=== PATIENT | female | born 1995 | race Caucasian/White ===

== ENCOUNTER 2021-09-04 14:09 | Inpatient (IN) | payer BC, MEDICAID ==
--- NOTE | 2021-09-04 16:07 | US ---
INDICATION: Third trimester with chronic hypertension. TECHNIQUE: Ultrasound OB pelvis transabdominal. Real-time salgado-scale imaging of the fetus was performed without stress testing. COMPARISON: 08/11/2021. FINDINGS: Sonographic imaging demonstrates a single living intrauterine gestation. Fetus demonstrates a regular cardiac rate of 132 beats per minute. Fetus has a cephalic orientation. Placenta is posterior. Biometric measurements: Biparietal diameter: 36 weeks 5 days. Head circumference: 37 weeks 2 days. Abdominal circumference: 36 weeks 3 days. Femur length: 36 weeks 1 day. Estimated weight: 2942 grams, 40th percentile. Estimated ultrasound age by today`s measurements is 36 weeks 4 days. Amniotic fluid volume appears within normal limits with a single deepest pocket of 3.3 cm. breathing movements, motion, and tone were all observed. IMPRESSION: Single viable intrauterine with a biophysical profile 05/14. Adequate interval growth has been demonstrated. Dictated by Pratik Bowen MD @ 09/04/2021 4:05:44 PM (Electronically Signed)
[2021-09-04 16:22] LABS: BLOOD UREA NITROGEN,BUN 15 mg/dL (7.0-18.0); CARBON DIOXIDE,CO2 21.2 mmol/L (21.0-32.0); CHLORIDE,CL 102 mmol/L (98-107); GLUCOSE RANDOM 76 mg/dL (74-106); POTASSIUM,K 4.4 mmol/L (3.5-5.1); SODIUM,NA 136 mmol/L (136-145)
[2021-09-04] MEDS ORDERED: Carboprost Tromethamine 250 MCG/1 ML Amp IM PRN (17:02)
[2021-09-04] MEDS ORDERED: Sodium Chloride 0.9% 20 ML SDV IV PRN (17:02)
[2021-09-04] MEDS ORDERED: Methylergonovine 0.2 MG/1 ML Amp IM PRN (17:02)
[2021-09-04] MEDS ORDERED: Sodium Chloride 0.9% 2.5 ML Syringe FLUSH PRN (17:02)
[2021-09-04] MEDS ORDERED: Nalbuphine 10 MG/1 ML Vial IVPUSH PRN (17:02)
[2021-09-04] MEDS ORDERED: Tranexamic Acid 1,000 MG in Sodium Chloride 0.9% 100 ML IV PRN (17:02)
[2021-09-04] MEDS ORDERED: Sodium Chloride 0.9% 10 ML Syringe FLUSH PRN (17:02)
[2021-09-04] MEDS ORDERED: Butorphanol 1 MG/ML SDV IVPUSH PRN (17:02)
[2021-09-04] MEDS ORDERED: Lidocaine 1% 50 ML MDV INJECT PRN (17:02)
[2021-09-04] MEDS ORDERED: Misoprostol 200 MCG Tab PO PRN (17:02)
[2021-09-04] MEDS ORDERED: Water For Irrigation,Sterile 1,000 ML Container IRR PRN (17:02)
[2021-09-04] MEDS ORDERED: Terbutaline 1 MG/ML SDV SUBCUT PRN (17:10)
[2021-09-04] MEDS ORDERED: Oxytocin/0.9 % Sodium Chloride 30 UNIT/500 ML BAG IV SCH ×2 (17:15)
[2021-09-04] MEDS ORDERED: Ampicillin 2 GM in Sodium Chloride 0.9% 100 ML IV ONE (17:30)
[2021-09-04] MEDS: Lactated Ringers 1,000 ML IV SCH (17:55)
[2021-09-04] MEDS ORDERED: Sodium Chloride 0.9% 100 ML ONE (18:08)
[2021-09-04] MEDS: Misoprostol 25 MCG (1/4 of 100 MCG) Tab PO PRN ×2 (18:20→22:34)
[2021-09-04] MEDS: Misoprostol 25 MCG (1/4 of 100 MCG) Tab VAG PRN ×2 (18:20→22:34)
[2021-09-04] MEDS: Labetalol 100 MG Tab PO SCH (21:03)
[2021-09-04] MEDS: NIFEdipine 30 MG Tab.ER PO SCH (21:03)
[2021-09-04] MEDS: Ampicillin 1 GM in Sodium Chloride 0.9% 50 ML IV SCH (21:05)
--- NOTE | 2021-09-04 22:57 | PCM.PREANE ---
Preanesthetic Assessment - Procedure Proposed Procedure: Potential Epidural, Spinal, or GETA - Anesthesia/Transfusion/Family Hx Anesthesia History: Prior Anesthesia Without Reaction Family History of Anesthesia Reaction: No Transfusion History: No Prior Transfusion(s) - Review of Systems General: No Symptoms Pulmonary: No Symptoms Cardiovascular: Other (HTN prior to ) Gastrointestinal: No Symptoms Neurological: No Symptoms Other: Reports: None - Physical Assessment NPO Status Date: 09/04/21 NPO Status Time: 22:00 Vital Signs: Last Vital Signs Temp Pulse 94 09/04/21 21:03 Resp BP 139/68 09/04/21 21:03 Pulse Ox Height: 1.6 m Weight: 122.47 kg ASA Class: 3 Mental Status: Alert & Oriented x3 Airway Class: Mallampati = 2 Dentition: Reports: Normal Dentition Thyro-Mental Finger Breadths: 3 Mouth Opening Finger Breadths: 3 ROM/Head Extension: Full Lungs: Clear to Auscultation, Normal Respiratory Effort Cardiovascular: Regular Rate, Regular Rhythm - Lab Values: Laboratory Last Values WBC 9.21 K/uL (4.0-11.0) 09/04/21 15:40 RBC 4.07 M/uL (4.30-5.90) L 09/04/21 15:40 Hgb 12.3 g/dL (12.0-16.0) 09/04/21 15:40 Hct 36.5 % (36.0-46.0) 09/04/21 15:40 MCV 89.7 fL (80.0-98.0) 09/04/21 15:40 MCH 30.2 pg (27.0-32.0) 09/04/21 15:40 MCHC 33.7 g/dL (31.0-37.0) 09/04/21 15:40 RDW Std Deviation 42.1 fl (28.0-62.0) 09/04/21 15:40 RDW Coeff of Hafsa 13 % (11.0-15.0) 09/04/21 15:40 Plt Count 370 K/uL (150-400) 09/04/21 15:40 MPV 9.90 fL (7.40-12.00) 09/04/21 15:40 Neut % (Auto) 71.0 % (48.0-80.0) 09/04/21 15:40 Lymph % (Auto) 21.5 % (16.0-40.0) 09/04/21 15:40 [place] % (Auto) 6.7 % (0.0-15.0) 09/04/21 15:40 Eos % (Auto) 0.7 % (0.0-7.0) 09/04/21 15:40 Baso % (Auto) 0.1 % (0.0-1.5) 09/04/21 15:40 Neut # (Auto) 6.5 K/uL (1.4-5.7) H 09/04/21 15:40 Lymph # (Auto) 2.0 K/uL (0.6-2.4) 09/04/21 15:40 [place] # (Auto) 0.6 K/uL (0.0-0.8) 09/04/21 15:40 Eos # (Auto) 0.1 K/uL (0.0-0.7) 09/04/21 15:40 Baso # (Auto) 0.0 K/uL (0.0-0.1) 09/04/21 15:40 Nucleated RBC % 0.0 /100WBC 09/04/21 15:40 Nucleated RBCs # 0 K/uL 09/04/21 15:40 Sodium 136 mmol/L (136-145) 09/04/21 15:40 Potassium 4.4 mmol/L (3.5-5.1) 09/04/21 15:40 Chloride 102 mmol/L (98-107) 09/04/21 15:40 Carbon Dioxide 21.2 mmol/L (21.0-32.0) 09/04/21 15:40 BUN 15 mg/dL (7.0-18.0) 09/04/21 15:40 Creatinine 0.8 mg/dL (0.6-1.0) 09/04/21 15:40 Est Cr Clr Drug Dosing 87.38 mL/min 09/04/21 15:40 Estimated GFR (MDRD) > 60.0 ml/min 09/04/21 15:40 Glucose 76 mg/dL (74-106) 09/04/21 15:40 Calcium 9.7 mg/dL (8.5-10.1) 09/04/21 15:40 Total Bilirubin 0.3 mg/dL (0.2-1.0) 09/04/21 15:40 AST 24 IU/L (15-37) 09/04/21 15:40 ALT 59 IU/L (14-63) 09/04/21 15:40 Alkaline Phosphatase 179 U/L (46-116) H 09/04/21 15:40 Total Protein 7.3 g/dL (6.4-8.2) 09/04/21 15:40 Albumin 2.8 g/dL (3.4-5.0) L 09/04/21 15:40 Globulin 4.5 g/dL (2.6-4.0) H 09/04/21 15:40 Albumin/Globulin Ratio 0.6 (0.9-1.6) L 09/04/21 15:40 Ur Random Creatinine 113.6 mg/dL 09/04/21 15:45 U Random Total Protein 14.4 mg/dL (<11.9) H 09/04/21 15:45 Protein/Creatinin Ratio 0.1 09/04/21 15:45 SARS-CoV-2 RNA (CORDELIA) NEGATIVE (NEGATIVE) 09/04/21 17:45 Blood Type A POSITIVE 09/04/21 18:33 Antibody Screen NEGATIVE 09/04/21 18:33 - Allergies Allergies/Adverse Reactions: Allergies Allergy/AdvReac Type Severity Reaction Status Date / Time No Known Allergies Allergy Verified 08/28/21 12:28 - Blood Blood Available: Yes Product(s) Available: PRBC (Type and screen) - Anesthesia Plan Pre-Op Medication Ordered: Beta Lalita Beta Lalita: Atenolol (Patient took last dose 2100 on 09/04/21) - Acknowledgements Anesthesia Type Planned: General Anesthesia, Spinal, Epidural Pt an Appropriate Candidate for the Planned Anesthesia: Yes Alternatives and Risks of Anesthesia Discussed w Pt/Guardian: Yes Pt/Guardian Understands and Agrees with Anesthesia Plan: Yes Additional Comments: Patient states that she would like to attempt labor without epidural. Pts RN states surgeon desires to proceed with in AM if no progress of labor. 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 (See Below) Other OB/BYN History: History of Herpes Simplex Virus genital - Infectious Disease History Infectious Disease History: Reports: Herpes - SUBSTANCE USE Tobacco Use Status *Q: Never Tobacco User Tobacco Use Within Last Twelve Months: No Second Hand Smoke Exposure: No Recreational Drug Use History: No - HOME MEDS Home Medications: Home Meds Aspirin [Adult Low Dose Aspirin EC] 81 mg PO DAILY 08/28/21 [History] Labetalol [Normodyne] 100 mg PO BID 08/28/21 [History] NIFEdipine [Nifedipine ER] 30 mg PO BID 08/28/21 [History] Pnv No.95/Ferrous Fum/Folic AC [ Vitamin Tablet] 1 tab PO DAILY 08/28/21 [History] - CURRENT (IN HOUSE) MEDS Current Meds: Current Medications Butorphanol Tartrate (Butorphanol 1 Mg/Ml Sdv) 1 mg IVPUSH Q1H PRN PRN Reason: Pain (severe 7-10) Carboprost Tromethamine (Carboprost Tromethamine 250 Mcg/1 Ml Amp) 250 mcg IM ASDIRECTED PRN PRN Reason: Post Hemorrhage Lactated Ringer's (Ringers, Lactated) 1,000 mls @ 150 mls/hr IV ASDIRECTED [facility] Last Admin: 09/04/21 17:55 Dose: 150 mls/hr Documented by: Oxytocin/Sodium Chloride (Oxytocin 30 Unit In Ns 0.9% 500 Ml Premix) 30 unit in 500 mls @ 999 mls/hr IV TITRATE [facility] Tranexamic Acid 1,000 mg/ (Sodium Chloride) 110 mls @ 660 mls/hr IV ONETIME PRN PRN Reason: Bleeding Ampicillin Sodium 1 gm/ Sodium (Chloride) 50 mls @ 100 mls/hr IV Q4H [facility] Last Admin: 09/04/21 21:05 Dose: 100 mls/hr Documented by: Oxytocin/Sodium Chloride (Oxytocin 30 Unit In Ns 0.9% 500 Ml Premix) 30 unit in 500 mls @ 2 mls/hr IV TITRATE [facility]; Protocol Labetalol HCl (Labetalol 100 Mg Tab) 100 mg PO BID [facility] Last Admin: 09/04/21 21:03 Dose: 100 mg Documented by: Lidocaine HCl (Lidocaine 1% 50 Ml Mdv) 50 ml INJECT ONETIME PRN PRN Reason: Laceration repair Methylergonovine Maleate (Methylergonovine 0.2 Mg/1 Ml Amp) 0.2 mg IM ASDIRECTED PRN PRN Reason: Post Hemorrhage Misoprostol (Misoprostol 200 Mcg Tab) 200 mcg PO ONETIME PRN PRN Reason: Post Hemorrhage Misoprostol (Misoprostol 25 Mcg (1/4 Of 100 Mcg) Tab) 25 mcg VAG ONETIME PRN PRN Reason: Cervical Ripening Last Admin: 09/04/21 18:20 Dose: 25 mcg Documented by: Misoprostol (Misoprostol 25 Mcg (1/4 Of 100 Mcg) Tab) 25 mcg VAG Q4H PRN PRN Reason: Cervical Ripening Last Admin: 09/04/21 22:34 Dose: 25 mcg Documented by: Misoprostol (Misoprostol 25 Mcg (1/4 Of 100 Mcg) Tab) 25 mcg PO ONETIME PRN PRN Reason: Cervical Ripening Last Admin: 09/04/21 18:20 Dose: 25 mcg Documented by: Misoprostol (Misoprostol 25 Mcg (1/4 Of 100 Mcg) Tab) 25 mcg PO Q4H PRN PRN Reason: Cervical Ripening Last Admin: 09/04/21 22:34 Dose: 25 mcg Documented by: Nalbuphine HCl (Nalbuphine 10 Mg/1 Ml Vial) 10 mg IVPUSH Q1H PRN PRN Reason: Pain (severe 7-10) Nifedipine (Nifedipine 30 Mg Tab.Er) 30 mg PO BID [facility] Last Admin: 09/04/21 21:03 Dose: 30 mg Documented by: Ondansetron HCl (Ondansetron 4 Mg/2 Ml Sdv) 4 mg IVPUSH Q4H PRN PRN Reason: Nausea/Vomiting Sodium Chloride (Sodium Chloride 0.9% 10 Ml Syringe) 10 ml FLUSH ASDIRECTED PRN PRN Reason: Keep Vein Open Sodium Chloride (Sodium Chloride 0.9% 2.5 Ml Syringe) 2.5 ml FLUSH ASDIRECTED PRN PRN Reason: Keep Vein Open Sodium Chloride (Sodium Chloride 0.9% 20 Ml Sdv) 10 ml IV ASDIRECTED PRN PRN Reason: IV Use Sterile Water (Water For Irrigation,Sterile 1,000 Ml Container) 1,000 ml IRR ASDIRECTED PRN PRN Reason: delivery Terbutaline Sulfate (Terbutaline 1 Mg/Ml Sdv) 0.25 mg SUBCUT ASDIRECTED PRN PRN Reason: Tacysystole Discontinued Medications Ampicillin Sodium 2 gm/ Sodium (Chloride) 100 mls @ 200 mls/hr IV ONETIME ONE Stop: 09/04/21 17:59 Last Admin: 09/04/21 18:03 Dose: 200 mls/hr Documented by: Sodium Chloride (Normal Saline Advbag) Confirm Administered Dose 100 mls @ as directed .ROUTE .STK-MED ONE Stop: 09/04/21 18:09
[2021-09-05] MEDS: Lactated Ringers 1,000 ML IV SCH ×3 (00:45→15:14)
[2021-09-05] MEDS: Ampicillin 1 GM in Sodium Chloride 0.9% 50 ML IV SCH ×5 (01:40→17:15)
[2021-09-05] MEDS: Misoprostol 25 MCG (1/4 of 100 MCG) Tab VAG PRN ×2 (02:31→07:41)
[2021-09-05] MEDS: Misoprostol 25 MCG (1/4 of 100 MCG) Tab PO PRN ×2 (02:32→07:42)
[2021-09-05] MEDS: Ondansetron 4 MG/2 ML SDV IVPUSH PRN ×3 (03:19→16:04)
[2021-09-05 07:15] LABS: BLOOD UREA NITROGEN,BUN 9 mg/dL (7.0-18.0); CARBON DIOXIDE,CO2 21.3 mmol/L (21.0-32.0); CHLORIDE,CL 104 mmol/L (98-107); GLUCOSE RANDOM 79 mg/dL (74-106); POTASSIUM,K 3.8 mmol/L (3.5-5.1); SODIUM,NA 138 mmol/L (136-145)
[2021-09-05] MEDS: Labetalol 100 MG Tab PO SCH ×2 (09:07→20:54)
[2021-09-05] MEDS: NIFEdipine 30 MG Tab.ER PO SCH ×2 (09:08→20:54)
[2021-09-05] MEDS ORDERED: Ropivacaine HCl/PF 200 ML ONE (13:15)
[2021-09-05] MEDS ORDERED: ePHEDrine 50 MG/ML SDV IVPUSH PRN (13:30)
[2021-09-05] MEDS ORDERED: Ropivacaine/PF 400 MG/200 ML PCA EPIDUR SCH (13:30)
--- NOTE | 2021-09-05 13:35 | PCM.SN.2 ---
- Pre-Procedure Checklist Attending Provider Aware: Yes Chart Reviewed: Yes Consent Signed: Yes Labs Reviewed: Yes VS/FHR Reviewed: Yes Patient Identification Confirmation Method: Reports: Chart Visual, Verbal Patient Pt an Appropriate Candidate for the Planned Anesthesia: Yes Alternatives and Risks of Anesthesia Discussed w Pt/Guardian: Yes - Procedure Procedure Start Date: 09/05/21 Procedure Start Time: 12:[address]: Reports: Blood Pressure, Heart Rate, SPO2 Functional IV: Yes Safety Measures: Reports: Patient Identified, Procedure Verified, Site Verified, Procedure Time Out Patient Position: Reports: Sitting Prep: Reports: Betadine x3 Local Anesthetic: Reports: Intradermal Wheal w Lidocaine 1% (3 ml times two) Regional Placement Level: Reports: L2-3, Other (L 3/4 and L4/5 attempted yet unable to redirect around osteom) Needle: Reports: 17 g Touhy Approach: Reports: Midline Technique: Reports: PILO Glass Syringe PILO Needle Depth (cm): 8 cm Parasthesia: Reports: None Fluid Obtained: Reports: None Catheter Depth at Skin (cm): 15 cm Test Dose Time: 13:09 Test Dose Medication: Reports: Lidocaine 1.5% w Epinephrine 1:200,000 (4 ml) Test Dose Response: Reports: Negative Loading Dose Time: 13:20 Loading Dose Medication: Ropivicaine 0.2% Loading Dose Patient Position: Supine Continuous Infusion Start Time: 13:21 Continuous Infusion Medication: Ropivicaine 0.2% Continuous Infusion Rate: 12 Continuous Infusion PCS Bolus Option: 4 Continuous Infusion Lockout Dose (cc/hr): 15 Patient Position Post Placement: Reports: Supline/ZHANG Post-procedure Pain Level: 0 VS and FHR Monitored in Unit Post Placement: Yes Procedure End Date: 09/05/21 Procedure End Time: 14:32 Procedure Comment: Sterile technique maintained throughout placement. Osteom encountered at L3/4 and L4/5 innerspaces and could not be navigated. Are localized at l2/3 and first attempt unsuccessfull yet second attempt 1cm left alowed for PILO and easy placement of catheter in epidural space.
--- NOTE | 2021-09-05 13:38 | PCM.POSTAN ---
POST ANESTHESIA ASSESSMENT - MENTAL STATUS Mental Status: Alert, Oriented - VITAL SIGNS Vital Signs: Last Vital Signs Temp Pulse 91 09/05/21 09:07 Resp BP 153/108 H 09/05/21 09:08 Pulse Ox - RESPIRATORY Respiratory Status: Respiratory Rate WNL, Airway Patent, O2 Saturation Stable - CARDIOVASCULAR CV Status: Pulse Rate WNL, Blood Pressure Stable - GASTROINTESTINAL GI Status: No Symptoms - POST OP HYDRATION Hydration Status: Adequate & Stable
[2021-09-05] MEDS ORDERED: Ibuprofen 400 MG Tab PO PRN (19:07)
[2021-09-05] MEDS ORDERED: oxyCODONE 5 MG Tab PO PRN (19:07)
[2021-09-05] MEDS ORDERED: Lanolin 100% Cream 7 GM Tube TOP PRN (19:07)
[2021-09-05] MEDS ORDERED: Acetaminophen 500 MG Tab PO PRN (19:07)
[2021-09-05] MEDS ORDERED: Benzocaine/Menthol 20%-0.5% Spray 78 GM Cannister TOP PRN ×2 (19:07→21:57)
[2021-09-05] MEDS ORDERED: Bisacodyl 10 MG Supp RECTAL PRN (19:07)
[2021-09-05] MEDS ORDERED: Docusate Sodium 100 MG Cap PO PRN (19:07)
[2021-09-05] MEDS ORDERED: Furosemide 20 MG/2 ML VIAL IVPUSH ONE (19:45)
[2021-09-05] MEDS: Witch Hazel Medicated Pads 40/Jar TOP PRN (20:50)
[2021-09-05] MEDS: Ibuprofen 800 MG Tab PO PRN (20:54)
--- NOTE | 2021-09-06 07:33 | OR ---
SURGEON: Keo Wallace MD DATE OF PROCEDURE: 09/05/2021 INDICATIONS: Ms. Sanchez is 25 years old. She is primigravida. She is followed in our clinic primarily by me. She has a risk factor that she has chronic hypertension, on medication, when she started her . We kept her on her medication. Other than elevated blood pressures occasionally in the last few weeks of her , the patient's care was uncomplicated. Her GBS status was positive. However, at 37 + 1, she came for an NST, and at the time at that time her NST and biophysical profile were normal. However, her blood pressure was 150/110 to 145/125. Reflexes were normal. No protein urea. Her lab work was normal. However, because of the high blood pressure and a possibility of preeclampsia superimposed on her hypertension issue, the patient was admitted to the hospital for induction. PROCEDURE IN DETAIL: We induced her with Cytotec, and we started her on antibiotic as per protocol because her GBS status was positive. The patient required 2 doses of Cytotec. She went from 1 cm to 4 cm with 90% to 100% vertex, -1 station. She had epidural anesthesia for labor analgesia, and after that augmentation of labor start with Pitocin. The patient continued to progress. She went to 7 and 9, and then complete. She commenced pushing. After pushing for 75 minute, she was able to accomplish normal spontaneous vaginal delivery of a male fetus, who cried immediately. The weight and scores are not available at the time of the dictation. Placenta delivered spontaneous, complete, and intact. There was a very superficial left labial laceration, repaired with 3-0 Vicryl. No perineal laceration. Estimated blood loss of 300 to 350 mL. heart rate was category 1 through the entire process of labor. There was no complication in the labor and delivery process, and it was a successful induction. SYLVIE / STAN /[id number]
--- NOTE | 2021-09-06 08:56 | PCM.PNPP ---
- General Info Date of Service: 09/06/21 Functional Status: Reports: Pain Controlled - Review of Systems General: Reports: No Symptoms HEENT: Reports: No Symptoms Pulmonary: Reports: No Symptoms Cardiovascular: Reports: No Symptoms Gastrointestinal: Reports: No Symptoms Genitourinary: Reports: No Symptoms Musculoskeletal: Reports: No Symptoms Skin: Reports: No Symptoms Neurological: Reports: No Symptoms Psychiatric: Reports: No Symptoms - General Info Date of Service: 09/06/21 - Patient Data Vital Signs - Most Recent: Last Vital Signs Temp 36.1 C 09/06/21 08:00 Pulse 85 09/06/21 08:00 Resp 18 09/06/21 08:00 BP 131/88 09/06/21 08:00 Pulse Ox 96 09/06/21 08:00 Weight - Most Recent: 122.47 kg I&O - Last 24 Hours: Intake & Output 09/05/21 09/06/21 09/06/21 22:59 06:59 14:59 Intake Total 1200 Output Total 800 Balance 400 Lab Results - Last 24 Hours: Laboratory Results - last 24 hr 09/06/21 Range/Units 06:15 Hgb 11.6 L (12.0-16.0) g/dL Hct 34.8 L (36.0-46.0) % Med Orders - Current: Current Medications Acetaminophen (Acetaminophen 500 Mg Tab) 500 mg PO Q4H PRN PRN Reason: Pain (mild 1-3) Acetaminophen (Acetaminophen 500 Mg Tab) 1,000 mg PO Q4H PRN PRN Reason: Pain (mild 1-3) Benzocaine/Menthol (Benzocaine/Menthol 20%-0.5% [place] 78 Gm Cannister) 78 gm TOP ASDIRECTED PRN PRN Reason: Perineal Comfort Measure Last Admin: 09/05/21 22:47 Dose: 1 spray Documented by: Bisacodyl (Bisacodyl 10 Mg Supp) 10 mg RECTAL ONETIME PRN PRN Reason: Constipation Docusate Sodium (Docusate Sodium 100 Mg Cap) 100 mg PO Q12H PRN PRN Reason: Constipation Last Admin: 09/05/21 20:54 Dose: 100 mg Documented by: Emollient Ointment (Lanolin 100% Cream 7 Gm Tube) 0 gm TOP ASDIRECTED PRN PRN Reason: Sore Nipples Lactated Ringer's (Ringers, Lactated) 1,000 mls @ 150 mls/hr IV ASDIRECTED [facility] Last Admin: 09/05/21 15:14 Dose: 150 mls/hr Documented by: Ibuprofen (Ibuprofen 400 Mg Tab) 400 mg PO Q4H PRN PRN Reason: Pain (mild 1-3) Ibuprofen (Ibuprofen 800 Mg Tab) 800 mg PO Q6H PRN PRN Reason: Cramping Last Admin: 09/05/21 20:54 Dose: 800 mg Documented by: Labetalol HCl (Labetalol 100 Mg Tab) 100 mg PO BID [facility] Last Admin: 09/05/21 20:54 Dose: 100 mg Documented by: Methylergonovine Maleate (Methylergonovine 0.2 Mg/1 Ml Amp) 0.2 mg IM ASDIRECTED PRN PRN Reason: Post Hemorrhage Misoprostol (Misoprostol 200 Mcg Tab) 200 mcg PO ONETIME PRN PRN Reason: Post Hemorrhage Nifedipine (Nifedipine 30 Mg Tab.Er) 30 mg PO BID [facility] Last Admin: 09/05/21 20:54 Dose: 30 mg Documented by: Oxycodone HCl (Oxycodone 5 Mg Tab) 5 mg PO Q2H PRN PRN Reason: Pain (severe 7-10) Sodium Chloride (Sodium Chloride 0.9% 10 Ml Syringe) 10 ml FLUSH ASDIRECTED PRN PRN Reason: Keep Vein Open Sodium Chloride (Sodium Chloride 0.9% 2.5 Ml Syringe) 2.5 ml FLUSH ASDIRECTED P RN PRN Reason: Keep Vein Open [place] ([place] Medicated Pads 40/Jar) 1 pad TOP ASDIRECTED PRN PRN Reason: comfort care Last Admin: 09/05/21 20:50 Dose: 1 pad Documented by: Discontinued Medications Benzocaine/Menthol (Benzocaine/Menthol 20%-0.5% [place] 78 Gm Cannister) 78 gm TOP ASDIRECTED PRN PRN Reason: Perineal Comfort Measure Butorphanol Tartrate (Butorphanol 1 Mg/Ml Sdv) 1 mg IVPUSH Q1H PRN PRN Reason: Pain (severe 7-10) Last Admin: 09/05/21 10:53 Dose: 1 mg Documented by: Carboprost Tromethamine (Carboprost Tromethamine 250 Mcg/1 Ml Amp) 250 mcg IM ASDIRECTED PRN PRN Reason: Post Hemorrhage Ephedrine Sulfate (Ephedrine 50 Mg/Ml Sdv) 10 mg IVPUSH Q1M PRN PRN Reason: Hypotension Furosemide (Furosemide 20 Mg/2 Ml Vial) 20 mg IVPUSH NOW ONE Stop: 09/05/21 19:46 Last Admin: 09/05/21 20:18 Dose: 20 mg Documented by: Oxytocin/Sodium Chloride (Oxytocin 30 Unit In Ns 0.9% 500 Ml Premix) 30 unit in 500 mls @ 999 mls/hr IV TITRATE [facility] Tranexamic Acid 1,000 mg/ (Sodium Chloride) 110 mls @ 660 mls/hr IV ONETIME PRN PRN Reason: Bleeding Ampicillin Sodium 2 gm/ Sodium (Chloride) 100 mls @ 200 mls/hr IV ONETIME ONE Stop: 09/04/21 17:59 Last Admin: 09/04/21 18:03 Dose: 200 mls/hr Documented by: Ampicillin Sodium 1 gm/ Sodium (Chloride) 50 mls @ 100 mls/hr IV Q4H [facility] Last Admin: 09/05/21 17:15 Dose: 100 mls/hr Documented by: Oxytocin/Sodium Chloride (Oxytocin 30 Unit In Ns 0.9% 500 Ml Premix) 30 unit in 500 mls @ 2 mls/hr IV TITRATE [facility]; Protocol Last Titration: 09/05/21 19:00 Dose: 500 munits/min, 500 mls/hr Documented by: Sodium Chloride (Normal Saline Advbag) Confirm Administered Dose 100 mls @ as directed .ROUTE .STK-MED ONE Stop: 09/04/21 18:09 Ropivacaine (Naropin 0.2%) Confirm Administered Dose 200 mls @ as directed .ROUTE .STK-MED ONE Stop: 09/05/21 13:16 Last Admin: 09/06/21 06:26 Dose: Not Given Documented by: Lidocaine HCl (Lidocaine 1% 50 Ml Mdv) 50 ml INJECT ONETIME PRN PRN Reason: Laceration repair Miscellaneous Medication (Phenylephrine Hcl In 0.9% Nacl 1 Mg/10 Ml Syringe) 0.1 mg IVPUSH Q1M PRN PRN Reason: Hypotension Misoprostol (Misoprostol 25 Mcg (1/4 Of 100 Mcg) Tab) 25 mcg VAG ONETIME PRN PRN Reason: Cervical Ripening Last Admin: 09/05/21 07:41 Dose: 25 mcg Documented by: Misoprostol (Misoprostol 25 Mcg (1/4 Of 100 Mcg) Tab) 25 mcg VAG Q4H PRN PRN Reason: Cervical Ripening Last Admin: 09/05/21 02:31 Dose: 25 mcg Documented by: Misoprostol (Misoprostol 25 Mcg (1/4 Of 100 Mcg) Tab) 25 mcg PO ONETIME PRN PRN Reason: Cervical Ripening Last Admin: 09/05/21 02:32 Dose: 25 mcg Documented by: Misoprostol (Misoprostol 25 Mcg (1/4 Of 100 Mcg) Tab) 25 mcg PO Q4H PRN PRN Reason: Cervical Ripening Last Admin: 09/05/21 07:42 Dose: 25 mcg Documented by: Nalbuphine HCl (Nalbuphine 10 Mg/1 Ml Vial) 10 mg IVPUSH Q1H PRN PRN Reason: Pain (severe 7-10) Last Admin: 09/05/21 03:21 Dose: 10 mg Documented by: Ondansetron HCl (Ondansetron 4 Mg/2 Ml Sdv) 4 mg IVPUSH Q4H PRN PRN Reason: Nausea/Vomiting Last Admin: 09/05/21 16:04 Dose: 4 mg Documented by: Ropivacaine (Ropivacaine/Pf 400 Mg/200 Ml [place]) 400 mg EPIDUR ASDIRECTED [facility] Sodium Chloride (Sodium Chloride 0.9% 20 Ml Sdv) 10 ml IV ASDIRECTED PRN PRN Reason: IV Use Sterile Water (Water For Irrigation,Sterile 1,000 Ml Container) 1,000 ml IRR ASDIRECTED PRN PRN Reason: delivery Terbutaline Sulfate (Terbutaline 1 Mg/Ml Sdv) 0.25 mg SUBCUT ASDIRECTED PRN PRN Reason: Tacysystole - Interaction Infant Disposition, : [place] in Room with Family Infant Interaction: Holding Infant Feeding: Attempted ; Nursed Fair/Poor Support Person: Significant Other - Recovery Exam Fundal Tone: Firm Fundal Level: 1 Fingerbreadths Below Umbilicus Fundal Placement: Midline Lochia Amount: Scant, Small Lochia Color: Rubra/Red Perineum Description: Intact, Minimal Bruising/Swelling Episiotomy/Laceration: Approximated Bladder Status: Voiding - Exam General: Alert, Oriented HEENT: Pupils Equal Neck: Supple Lungs: Clear to Auscultation, Normal Respiratory Effort Cardiovascular: Regular Rate, Regular Rhythm GI/Abdominal Exam: Normal Bowel Sounds, Soft, Non-Tender, No Organomegaly, No Distention, No Abnormal Bruit, No Mass, Pelvis Stable Extremities: Normal Inspection, Normal Range of Motion, Non-Tender, No Pedal Edema, Normal Capillary Refill Skin: Warm, Dry, Intact Wound/Incisions: Healing Well Neurological: No New Focal Deficit Psy/Mental Status: Alert, Normal Affect, Normal Mood - Problem List Review Problem List Initiated/Reviewed/Updated: Yes - My Orders Last 24 Hours: My Active Orders 09/05/21 19:07 Patient Status [ADT] Routine Up ad Liliana [RC] ASDIRECTED Vital Signs [RC] PER UNIT ROUTINE Acetaminophen [Tylenol Extra Strength] 1,000 mg PO Q4H PRN Acetaminophen [Tylenol Extra Strength] 500 mg PO Q4H PRN Docusate Sodium [Colace] 100 mg PO Q12H PRN Ibuprofen [Motrin] 400 mg PO Q4H PRN Ibuprofen [Motrin] 800 mg PO Q6H PRN Lanolin [Lansinoh HPA] See Dose Instructions TOP ASDIRECTED PRN bisacodyL [Dulcolax] 10 mg RECTAL ONETIME PRN oxyCODONE 5 mg PO Q2H PRN [place] [Tucks] 1 pad TOP ASDIRECTED PRN Assess Lochia [WOMSER] Per Unit Routine Assess Uterine Involution [WOMSER] Per Unit Routine Peripheral IV Discontinue [OM.PC] Routine 09/05/21 21:57 Benzocaine/Menthol [Dermoplast Pain Relief 20%-0.5% [place]] 78 gm TOP ASDIRECTED PRN 09/06/21 Breakfast Regular Diet [DIET] - Assessment Assessment:: Status post normal spontaneous vaginal delivery post delivery #1 the patient is doing well her blood pressure is stable minimum vaginal bleeding. The patient will be sent home today on her home meds and blood pressure medication and to be followed in the office in 2 weeks
[2021-09-06] MEDS: NIFEdipine 30 MG Tab.ER PO SCH ×2 (09:11→21:42)
[2021-09-06] MEDS: Labetalol 100 MG Tab PO SCH ×2 (09:15→21:43)
[2021-09-06] MEDS: Acetaminophen 500 MG Tab PO PRN ×2 (10:11→15:47)
--- NOTE | 2021-09-06 11:22 | PCM48HPAN ---
Post Anesthesia Note - EVALUATION WITHIN 48HRS OF ANESTHETIC Vital Signs in Normal Range: Yes Patient Participated in Evaluation: Yes Respiratory Function Stable: Yes Airway Patent: Yes Cardiovascular Function Stable: Yes Hydration Status Stable: Yes Pain Control Satisfactory: Yes Nausea and Vomiting Control Satisfactory: Yes Mental Status Recovered: Yes Vital Signs: Last Vital Signs Temp 36.1 C 09/06/21 08:00 Pulse 85 09/06/21 09:15 Resp 18 09/06/21 08:00 BP 131/88 09/06/21 09:15 Pulse Ox 96 09/06/21 08:00 - COMMENTS/OBSERVATIONS Free Text/Narrative:: Pt states to being up and walking with no residual weakness. Pt denies signs and symptoms of infection. pt denies back pain.
[2021-09-06] MEDS: Ibuprofen 800 MG Tab PO PRN ×2 (12:08→21:43)
[2021-09-06] MEDS: Witch Hazel Medicated Pads 40/Jar TOP PRN (15:46)
== END 2021-09-06 21:45 | disposition home or self-care (01) | DRG 560 ==
LOC: MW.OBCHECK 14:09 → MW.OB 14:10 → MW.OBCHECK 17:03 → MW.OB 17:03 → OBSVTOIN 09-05 18:55 → MW.OB 09-05 23:00
PROVIDERS: ADMIT Obstetrics & Gynecology; ATTEND Obstetrics & Gynecology
PROC: 10E0XZZ Delivery of Products of Conception, External Approach (ICD-10-PCS; principal; 2021-09-05)
DX: O11.4 Pre-existing hypertension with pre-eclampsia, complicating childbirth (principal); O99.824 Streptococcus B carrier state complicating childbirth; Z37.0 Single live birth; Z3A.36 36 weeks gestation of pregnancy; Z20.822 Contact with and (suspected) exposure to COVID-19
CPT/HCPCS: 01967; 36415; 51702; 59025; 59409; 76819; 76819-26; 80053; 82570; 84156; 85014; 85018; 85025; 85027; 86592; 86850; 86900; 86901; A9270-GY; J0290; J0595; J1940; J2300; J2405; J2590; J2795; J7120; U0002

== ENCOUNTER 2024-07-05 17:44 | Emergency (ER) | payer BC ==
[2024-07-05 18:09] LABS: BASOPHILS ABSOLUTE AUTO 0.06 K/uL (0.00-0.20); BASOPHILS PERCENT AUTO 0.8 % (0.0-1.0); EOSINOPHILS ABSOLUTE AUTO 0.39 K/uL (0.00-0.45); EOSINOPHILS PERCENT AUTO 4.9 % (0.0-6.0); HEMATOCRIT 37.2 % (37.0-47.0); HEMOGLOBIN 12.3 g/dL (12.0-16.0); IMMATURE GRAN ABSOLUTE AUTO 0.02 K/uL (0.00-0.05); IMMATURE GRAN PERCENT AUTO 0.3 % (0.0-0.4); LYMPHOCYTES ABSOLUTE AUTO 2.78 K/uL (1.00-4.80); LYMPHOCYTES PERCENT AUTO 34.9 % (24.0-44.0); MEAN CORPUSCULAR HEMOGLOBIN 29.6 pg (28.0-32.0); MEAN CORPUSCULAR HGB CONC 33.1 g/dL (32.0-36.0); MEAN CORPUSCULAR VOLUME 89.4 fL (83.0-99.0); MEAN PLATELET VOLUME 9.1 fL (9.4-12.3); MONOCYTES ABSOLUTE AUTO 0.61 K/uL (0.00-0.80); MONOCYTES PERCENT AUTO 7.7 % (0.0-8.0); NEUTROPHILS PERCENT AUTO 51.4 % (41.0-71.0); PLATELET COUNT,PLT 398 K/uL (150-400); RED BLOOD CELL COUNT 4.16 M/uL (4.10-5.30); WHITE BLOOD CELL COUNT,WBC 7.96 K/uL (3.9-11.3)
[2024-07-05 18:39] LABS: A/G RATIO 0.9 (0.9-1.6); ALANINE AMINOTRANSFERASE,ALT 69 IU/L (14-63); ALBUMIN 3.8 g/dL (3.4-5.0); ALKALINE PHOSPHATASE 112 U/L (46-116); ASPARTATE AMNIOTRANSFERASE,AST 34 IU/L (15-37); BILIRUBIN TOTAL 0.2 mg/dL (0.2-1.0); BLOOD UREA NITROGEN,BUN 14 mg/dL (7.0-18.0); CALCIUM 9.1 mg/dL (8.5-10.1); CARBON DIOXIDE,CO2 27.9 mmol/L (21.0-32.0); CHLORIDE,CL 104 mmol/L (98-107); CREATININE 1.4 mg/dL (0.6-1.0); GLUCOSE RANDOM 90 mg/dL (74-106); PROTEIN TOTAL,TP 7.9 g/dL (6.4-8.2); SODIUM,NA 142 mmol/L (136-145)
[2024-07-05 18:40] LABS: ESTIMATED GFR 52 mL/min (>60)
[2024-07-05] MEDS ORDERED: Sodium Chloride 0.9% 10 ML Syringe FLUSH PRN (18:46)
[2024-07-05] MEDS ORDERED: Sodium Chloride 0.9% 2.5 ML Syringe FLUSH PRN (18:46)
[2024-07-05] MEDS: Ketorolac 30 MG/ML SDV IVPUSH STA (18:58)
[2024-07-05] MEDS: Sodium Chloride 0.9% 1,000 ML IV STA (18:58)
[2024-07-05] MEDS: Ondansetron 4 MG/2 ML SDV IVPUSH STA (18:58)
[2024-07-05] MEDS: Iopamidol 755 MG/ML 500 ML Multipack Bottle IVPUSH ONE (19:22)
== END 2024-07-05 20:53 | disposition home or self-care (01) ==
LOC: MW.ED 17:44
DX: K80.80 Other cholelithiasis without obstruction (principal); Z75.8 Other problems related to medical facilities and other health care
CPT/HCPCS: 36415; 71275; 74177; 80053; 84484; 84703; 85025; 93005; 96361; 96374; 96375; 99284; J1885; J2405; J7030; Q9967; 93010

== ENCOUNTER 2024-07-29 10:08 | Day surgery (SDC) | payer BC ==
[~2024-07-29 10:08] MED LIST: Acetaminophen 1,000 MG in Premix Bag 1 BAG IV SCH; Albuterol 0.083% 2.5 MG/3 ML Neb Soln NEB PRN; Bupivacaine 0.25% 30 ML SDV ONE; Lidocaine 2% 5 ML SDV ONE; Metoclopramide 10 MG/2 ML SDV IVPUSH PRN; Morphine 10 MG/ML SDV ONE; Morphine 2 MG/ML SYRINGE IVPUSH PRN; Naloxone 0.4 MG/ML SDV IVPUSH PRN; Ondansetron 4 MG/2 ML SDV IVPUSH PRN; Ondansetron 4 MG/2 ML SDV ONE; Phenylephrine HCl In 0.9% NaCl 1 MG/10 ML Syringe IVPUSH PRN; Rocuronium Bromide 50 MG/5 ML Syringe ONE; Sugammadex Sodium 200 MG/2 ML VIAL IV ONE; ceFAZolin 2 GM in Sodium Chloride 0.9% 50 ML IV ONE; droPERidol 5 MG/2 ML SDV IVPUSH PRN; fentaNYL 100 MCG/2 ML SDV ONE; fentaNYL 50 MCG/ML SDV IVPUSH PRN; propofoL 200 ML ONE
[2024-07-29] MEDS ORDERED: Pregabalin 75 MG Cap ONE (10:20)
[2024-07-29] MEDS ORDERED: Bupivacaine 0.25% 30 ML SDV ONE ×2 (10:29→11:11)
[2024-07-29] MEDS ORDERED: Ropivacaine 0.5% 5 MG/ML 30 ML SDV ONE (10:29)
[2024-07-29] MEDS: Scopalamine 1mg/3day Transdermal Patch TOP ONE (10:30)
[2024-07-29] MEDS: Pregabalin 75 MG Cap PO SCH (10:35)
[2024-07-29] MEDS: Lactated Ringers 1,000 ML IV SCH (10:48)
[2024-07-29] MEDS ORDERED: Metoclopramide 10 MG/2 ML SDV ONE (12:23)
[2024-07-29] MEDS ORDERED: ceFAZolin 1 GM Vial ONE (12:25)
[2024-07-29] MEDS ORDERED: ceFAZolin 2 GM Vial ONE (12:26)
[2024-07-29] MEDS ORDERED: Ketorolac 30 MG/ML SDV ONE (13:34)
[2024-07-29] MEDS: HYDROmorphone 1 MG/ML Syringe IVPUSH PRN (14:20)
[2024-07-29] MEDS: Ondansetron 4 MG Tab.DIS PO ONE (15:41)
== END 2024-07-29 16:40 | disposition home or self-care (01) ==
LOC: MW.SDS 10:08
PROVIDERS: ATTEND Surgery
DX: K80.10 Calculus of gallbladder with chronic cholecystitis without obstruction (principal); I10 Essential (primary) hypertension
CPT/HCPCS: 47562; 64448; 81025; A9270; J0131; J0665; J0690; J1171; J1885; J2270; J2405; J2704; J2765; J2795; J3010; J3490; J7120; 00790; 64488